=== PATIENT | male | born 1985 | race Caucasian/White ===

== ENCOUNTER 2017-07-17 10:52 | Emergency (ER) | payer OTHER ==
[2017-07-17] MEDS ORDERED: SODIUM CHLORIDE 0.9% 1,000 ML IV ONE (11:10)
[2017-07-17] MEDS ORDERED: RX INFO: IV CONTRAST WAS GIVEN 1 EACH MISC MISCELLANE PRN (11:10)
[2017-07-17] MEDS ORDERED: ACETAMINOPHEN TAB 500 MG TAB PO STA (11:10)
[2017-07-17] MEDS ORDERED: ONDANSETRON 4 MG/2 ML VIAL IVP STA (11:10)
--- NOTE | 2017-07-17 11:41 | ED ---
Abdominal Pain HPI - General Chief Complaint: Abdominal Pain Stated Complaint: Stomach/lt side pain Time Seen by Provider: 07/17/17 10:59 Source: patient Mode of arrival: ambulatory Limitations: no limitations - History of Present Illness Initial Comments: This is a 31-year-old male who presents emergency department for left-sided abdominal pain, nausea, and vomiting. The patient states it started a few days ago. He states he is also been having some chills at home. He went to [facility] who noted that he was febrile and felt that he had tenderness in his left lower quadrant was concern for diverticulitis and sent him here. The patient denies any diarrhea. No sick contacts. No cough or shortness of breath. No upper respiratory symptoms. No other complaints. - Related Data Previous Rx's Medication Instructions Recorded Ciprofloxacin HCl [Cipro] 500 mg PO Q12HR #14 tablet 07/17/17 metroNIDAZOLE [Flagyl] 500 mg PO Q8HR #21 tab 07/17/17 Allergies Allergy/AdvReac Type Severity Reaction Status Date / Time Penicillins Allergy Unknown Verified 07/17/17 11:12 Review of Systems ROS Statement: Those systems with pertinent positive or pertinent negative responses have been documented in the HPI. ROS Other: All systems not noted in ROS Statement are negative. Past Medical History Past Medical History: No Reported History History of Any Multi-Drug Resistant Organisms: None Reported Past Surgical History: No Surgical Hx Reported Past Psychological History: Anxiety, PTSD Smoking Status: Never smoker Past Alcohol Use History: Occasional Past Drug Use History: None Reported General Exam - General Exam Comments Initial Comments: Constitutional: Awake alert Appears comfortable Head: Normocephalic atraumatic Eyes: no conjunctival injection No scleral icterus EOMI Neck: No JVD Supple Heart: Regular rate rhythm normal S1-S2 no murmurs Lungs: Clear to auscultation bilaterally No wheezing No rales Abdomen: Soft nondistended tender to palpation in the left lower quadrant without rebound or guarding Extremities: Non edematous DP pulses intact Radial pulses intact Neuro: A&Ox3 No focal neurologic deficits Psych: Appropriate mood and affect Limitations: no limitations Course Vital Signs 07/17/17 10:59 Temperature 97.8 F Pulse Rate 85 Respiratory 20 Rate Blood Pressure 121/75 O2 Sat by Pulse 100 Oximetry Medical Decision Making - Medical Decision Making This is a 31-year-old male who presents emergency report for fever left lower quadrant pain. Computed tomography scan did not show evidence for diverticulitis however due to the patient's pain and symptoms of going to start him on Cipro and Flagyl. Blood work was reviewed and unremarkable. I did look at the UA from the urgent care which was negative for infection. This time going to send the patient home. Told to return if he has worsening or changing symptoms. All questions were answered. - Lab Data Result diagrams: 07/17/17 11:20 07/17/17 11:20 Lab Results 07/17/17 07/17/17 Range/Units 11:20 11:20 WBC 4.3 (3.8-10.6) k/uL RBC 5.03 (4.30-5.90) m/uL Hgb 15.9 (13.0-17.5) gm/dL Hct 48.0 (39.0-53.0) % MCV 95.5 (80.0-100.0) fL MCH 31.6 (25.0-35.0) pg MCHC 33.1 (31.0-37.0) g/dL RDW 13.6 (11.5-15.5) % Plt Count 182 (150-450) k/uL Neutrophils % 66 % Lymphocytes % 20 % Monocytes % 8 % Eosinophils % 2 % Basophils % 1 % Neutrophils # 2.8 (1.3-7.7) k/uL Lymphocytes # 0.9 L (1.0-4.8) k/uL Monocytes # 0.3 (0-1.0) k/uL Eosinophils # 0.1 (0-0.7) k/uL Basophils # 0.0 (0-0.2) k/uL Sodium 140 (137-145) mmol/L Potassium 4.2 (3.5-5.1) mmol/L Chloride 103 (98-107) mmol/L Carbon Dioxide 26 (22-30) mmol/L Anion Gap 11 mmol/L BUN 18 (9-20) mg/dL Creatinine 0.86 (0.66-1.25) mg/dL Est GFR (MDRD) Af Amer >60 (>60 ml/min/1.73 sqM) Est GFR (MDRD) Non-Af >60 (>60 ml/min/1.73 sqM) Glucose 93 (74-99) mg/dL Calcium 9.6 (8.4-10.2) mg/dL Total Bilirubin 0.8 (0.2-1.3) mg/dL AST 52 (17-59) U/L ALT 72 (21-72) U/L Alkaline Phosphatase 50 (38-126) U/L Total Protein 7.3 (6.3-8.2) g/dL Albumin 4.6 (3.5-5.0) g/dL Disposition Clinical Impression: Nausea & vomiting, Abdominal pain, Fever Disposition: HOME SELF-CARE Condition: Stable Instructions: Abdominal Pain (ED) Prescriptions: Ciprofloxacin HCl [Cipro] 500 mg PO Q12HR #14 tablet metroNIDAZOLE [Flagyl] 500 mg PO Q8HR #21 tab Referrals: None,Stated [Primary Care Provider] - 1-2 days
[2017-07-17 11:42] LABS: Basophils % (A) 1 %; Eosinophils # (A) 0.1 k/uL (0-0.7); Eosinophils % (A) 2 %; HGB 15.9 gm/dL (13.0-17.5); Lymphocytes # (A) 0.9 k/uL (1.0-4.8); Lymphocytes % (A) 20 %; MCH 31.6 pg (25.0-35.0); MCHC 33.1 g/dL (31.0-37.0); MCV 95.5 fL (80.0-100.0); Monocytes # (A) 0.3 k/uL (0-1.0); Monocytes % (A) 8 %; Neutrophils # (A) 2.8 k/uL (1.3-7.7); Neutrophils % (A) 66 %; Platelet Count 182 k/uL (150-450); RBC 5.03 m/uL (4.30-5.90); RDW 13.6 % (11.5-15.5); WBC 4.3 k/uL (3.8-10.6)
[2017-07-17 11:54] LABS: ALT 72 U/L (21-72); AST 52 U/L (17-59); Albumin 4.6 g/dL (3.5-5.0); Alkaline Phosphatase 50 U/L (38-126); Anion Gap 11 mmol/L; Blood Urea Nitrogen 18 mg/dL (9-20); Calcium 9.6 mg/dL (8.4-10.2); Carbon Dioxide 26 mmol/L (22-30); Chloride 103 mmol/L (98-107); Glucose 93 mg/dL (74-99); Potassium 4.2 mmol/L (3.5-5.1); Sodium 140 mmol/L (137-145); Total Bilirubin 0.8 mg/dL (0.2-1.3); Total Protein 7.3 g/dL (6.3-8.2)
--- NOTE | 2017-07-17 12:13 | CT ---
EXAMINATION TYPE: CT abdomen pelvis w con DATE OF EXAM: 07/17/2017 COMPARISON: NONE HISTORY: LLQ pain CT DLP: 1398.6 mGycm Automated exposure control for dose reduction was used. TECHNIQUE: Helical acquisition of images was performed from the lung bases through the pelvis. CONTRAST: Performed without Oral Contrast and with IV Contrast, patient injected with 100 mL of Omnipaque 300. FINDINGS: LUNG BASES: No significant abnormality is appreciated. LIVER/GB: Focal wedge-shaped area of hypoattenuation is seen within segment IVb of the liver along th e fissure for the falciform ligament. This is most commonly related to focal fatty infiltration. PANCREAS: No significant abnormality is seen. SPLEEN: No significant abnormality is seen. ADRENALS: No significant abnormality is seen. KIDNEYS: Focal 3 mm hypoattenuated right lower pole lesion is too small to accurately characterize. O therwise the kidneys enhance symmetrically. No hydronephrosis or perinephric fat stranding. FREE AIR: No free air is visualized. ADENOPATHY: None visualized REPRODUCTIVE ORGANS: Prostate gland is mildly heterogenous containing central zone calcification. URINARY BLADDER: No significant abnormality is seen. OSSEOUS STRUCTURES: No significant abnormality is seen. BOWEL: Few sigmoid diverticula are present without pericolonic fat stranding. Transverse colonic div erticula are also seen without pericolonic fat stranding. Surgical sutures are seen around the cecum. Appendix is likely surgically absent and not visualized. No right lower quadrant fat stranding or se condary signs of appendicitis such as adenopathy or free fluid are noted. IMPRESSION: COLONIC DIVERTICULOSIS WITHOUT EVIDENCE OF DIVERTICULITIS. NO ACUTE INTRA-ABDOMINAL PATHOLOGY.
[2017-07-17 12:53] VITALS: BP 113/62; PULSE 76; RESP 18; TEMP 97.6
== END 2017-07-17 12:53 | disposition home or self-care (01) ==
LOC: EC 10:52
DX: R10.32 Left lower quadrant pain (principal); R11.2 Nausea with vomiting, unspecified; R50.9 Fever, unspecified; Z88.0 Allergy status to penicillin
CPT/HCPCS: 36415; 74177; 80053; 85025; 96361; 96374; 99284

== ENCOUNTER 2017-07-20 09:07 | Emergency (ER) | payer OTHER ==
[2017-07-20] MEDS ORDERED: METOCLOPRAMIDE 5 MG/ML 2 ML VIAL IVP STA (10:19)
[2017-07-20] MEDS ORDERED: SODIUM CHLORIDE 0.9% 1,000 ML IV STA (10:19)
[2017-07-20] MEDS ORDERED: PANTOPRAZOLE 40 MG/10 ML VIAL IVP STA (10:19)
--- NOTE | 2017-07-20 10:25 | ED ---
General Adult HPI - General Chief complaint: Abdominal Pain Stated complaint: Abd Pain, vomiting Time Seen by Provider: 07/20/17 10:06 Source: patient, RN notes reviewed, old records reviewed Mode of arrival: ambulatory Limitations: no limitations - History of Present Illness Initial comments: Chief complaint and history of present illness; is a 31-year-old male here for complaint of nausea and vomiting but no diarrhea. The patient was in emergency room several days ago with the presumptive diagnosis of mild diverticulitis. CAT scan at that time was negative for acute diverticulitis. But his symptoms were suggestive with left lower quadrant pain. The patient was placed on Flagyl and Cipro. Patient started having nausea and vomiting yesterday throughout this morning. Patient thinks he dehydrated. He did have some chills and he felt warm. - Related Data Previous Rx's Medication Instructions Recorded Ondansetron Odt [Zofran Odt] 4 mg PO Q8HR PRN #10 tab 07/20/17 Allergies Allergy/AdvReac Type Severity Reaction Status Date / Time Penicillins Allergy Unknown Verified 07/20/17 09:41 Review of Systems ROS Statement: Those systems with pertinent positive or pertinent negative responses have been documented in the HPI. Review of systems. No visual acuity changes no headache no chest pain at this time no shortness of breath. Patient has epigastric discomfort is sometimes feels course through to his back. Lower abdomen is less uncomfortable now. Nausea and vomiting but no diarrhea. Decreased appetite. No neuro deficits complained of. All systems are reviewed. Past medical problems none. Surgeries none. Family history: Cancer. Patient has ALLERGIES to penicillin. He quit smoking 5 years ago. Drinks alcohol occasionally, socially. Denies drinking any excess alcohol lately. ROS Other: All systems not noted in ROS Statement are negative. Past Medical History Past Medical History: No Reported History History of Any Multi-Drug Resistant Organisms: None Reported Past Surgical History: No Surgical Hx Reported Past Psychological History: Anxiety, PTSD Smoking Status: Never smoker Past Alcohol Use History: Occasional Past Drug Use History: None Reported General Exam - General Exam Comments Initial Comments: General: The patient is awake and alert, here because of nausea vomiting and epigastric discomfort. The patient had been on Cipro for 2 days and then stopped yesterday because of the symptoms. No signs showed temperature 98.3 pulse 81 respiratory rate 18 pulse ox 99% room air blood pressure 138/64. Eye: Pupils are equal, round and reactive to light, extra-ocular movements are intact ; there is normal conjunctiva bilaterally. No signs of icterus. Ears, nose, mouth and throat: There are moist mucous membranes and no oral lesions. Neck: The neck is supple, there is no tenderness, no anterior cervical lymphadenopathy , thyroid not enlarged. Cardiovascular: There is a regular rate and rhythm. No murmur, rub or gallop is appreciated. Respiratory: Lungs are clear to auscultation, respirations are non-labored, breath sounds are equal. No wheezes, stridor, rales, or rhonchi. Gastrointestinal: Soft, non-distended, non-tender abdomen without masses or organomegaly noted. There is no rebound or guarding present. No CVA tenderness. Bowel sounds are unremarkable. Subjective complaint of epigastric discomfort. Nausea vomiting. No diarrhea. Back: There is no tenderness to palpation in the midline. There is no obvious deformity. No rashes noted. Negative kidney punch test. He reports last night does have some discomfort behind the epigastric area in his back. Musculoskeletal: Normal ROM, no tenderness, There is no pedal edema. There is no calf tenderness or swelling. Sensation intact. Pulses equal bilaterally 2+. 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 Neurological: No evidence of or any complaints of any neuro deficits. No numbness no tingling no weakness. Skin: No rashes Psychiatric: Patient is cooperative. No evidence or signs of distress or depression. Limitations: no limitations Course Vital Signs 07/20/17 07/20/17 07/20/17 09:26 10:18 11:43 Temperature 98.3 F 98.2 F Pulse Rate 81 68 63 Respiratory 18 16 18 Rate Blood Pressure 138/64 119/57 100/62 O2 Sat by Pulse 99 98 99 Oximetry Medical Decision Making - Medical Decision Making Medical decision making; 31-year-old male here with a complaint of nausea and vomiting. Some epigastric discomfort. He's been on Flagyl and Cipro for 2 days for presumptive diverticulitis. The CAT scan done several days ago is negative for diverticulitis though. Labs show; white count 5.2 hemoglobin 16 hematocrit of 50, potassium 4.1 BUN 10 creatinine 0.19 the GFR greater than 60 with a glucose 94. The patient's AST is mildly elevated at 76 ALT elevated at 105. Amylase lipase within normal limits. X-ray of the abdomen was done and reviewed by radiologist his final impression is nonspecific abdomen. Few prominent small bowel loops in the upper abdomen greater on the left. Differential included a localized ileus or enteritis. Partial obstructive pattern felt less likely correlate clinically. As read by Dr. Zaragoza Patient states he is feeling better. We will challenge him with ice chips. No discomfort no nausea no vomiting while in emergency room. Is able to drink less water and eat ice chips without any nausea or vomiting. We did discuss gastroenteritis. Patient be advised to use prescription of Zofran as directed. Plus Pepto-Bismol. Advised to advance his diet starting with small amount of fluid. Than probiotics. He is advised to follow-up with family physician return emergency room as needed. Also advised to research diet restrictions for people with diverticulosis. Advised return emergency room as needed - Lab Data Result diagrams: 07/20/17 10:00 07/20/17 10:00 Lab Results 07/20/17 07/20/17 07/20/17 Range/Units 10:00 10:00 10:00 WBC 5.2 (3.8-10.6) k/uL RBC 5.10 (4.30-5.90) m/uL Hgb 16.4 (13.0-17.5) gm/dL Hct 50.0 (39.0-53.0) % MCV 98.0 (80.0-100.0) fL MCH 32.1 (25.0-35.0) pg MCHC 32.8 (31.0-37.0) g/dL RDW 13.3 (11.5-15.5) % Plt Count 175 (150-450) k/uL Neutrophils % 66 % Lymphocytes % 22 % Monocytes % 8 % Eosinophils % 3 % Basophils % 1 % Neutrophils # 3.4 (1.3-7.7) k/uL Lymphocytes # 1.1 (1.0-4.8) k/uL Monocytes # 0.4 (0-1.0) k/uL Eosinophils # 0.1 (0-0.7) k/uL Basophils # 0.0 (0-0.2) k/uL Sodium 138 (137-145) mmol/L Potassium 4.1 (3.5-5.1) mmol/L Chloride 104 (98-107) mmol/L Carbon Dioxide 25 (22-30) mmol/L Anion Gap 9 mmol/L BUN 10 (9-20) mg/dL Creatinine 0.92 (0.66-1.25) mg/dL Est GFR (MDRD) Af Amer >60 (>60 ml/min/1.73 sqM) Est GFR (MDRD) Non-Af >60 (>60 ml/min/1.73 sqM) Glucose 94 (74-99) mg/dL Plasma Lactic Acid Bari 0.8 (0.7-2.0) mmol/L Calcium 9.6 (8.4-10.2) mg/dL Total Bilirubin 1.0 (0.2-1.3) mg/dL AST 76 H (17-59) U/L ALT 105 H (21-72) U/L Alkaline Phosphatase 45 (38-126) U/L Total Protein 6.9 (6.3-8.2) g/dL Albumin 4.3 (3.5-5.0) g/dL Amylase <30 L (30-110) U/L Lipase 31 (23-300) U/L Urine Color Urine Appearance (Clear) Urine pH (5.0-8.0) Ur Specific [place] (1.001-1.035) Urine Protein (Negative) Urine Glucose (UA) (Negative) Urine Ketones (Negative) Urine Blood (Negative) Urine Nitrite (Negative) Urine Bilirubin (Negative) Urine Urobilinogen (<2.0) mg/dL Ur Leukocyte Esterase (Negative) 07/20/17 Range/Units 10:00 WBC (3.8-10.6) k/uL RBC (4.30-5.90) m/uL Hgb (13.0-17.5) gm/dL Hct (39.0-53.0) % MCV (80.0-100.0) fL MCH (25.0-35.0) pg MCHC (31.0-37.0) g/dL RDW (11.5-15.5) % Plt Count (150-450) k/uL Neutrophils % % Lymphocytes % % Monocytes % % Eosinophils % % Basophils % % Neutrophils # (1.3-7.7) k/uL Lymphocytes # (1.0-4.8) k/uL Monocytes # (0-1.0) k/uL Eosinophils # (0-0.7) k/uL Basophils # (0-0.2) k/uL Sodium (137-145) mmol/L Potassium (3.5-5.1) mmol/L Chloride (98-107) mmol/L Carbon Dioxide (22-30) mmol/L Anion Gap mmol/L BUN (9-20) mg/dL Creatinine (0.66-1.25) mg/dL Est GFR (MDRD) Af Amer (>60 ml/min/1.73 sqM) Est GFR (MDRD) Non-Af (>60 ml/min/1.73 sqM) Glucose (74-99) mg/dL Plasma Lactic Acid Bari (0.7-2.0) mmol/L Calcium (8.4-10.2) mg/dL Total Bilirubin (0.2-1.3) mg/dL AST (17-59) U/L ALT (21-72) U/L Alkaline Phosphatase (38-126) U/L Total Protein (6.3-8.2) g/dL Albumin (3.5-5.0) g/dL Amylase (30-110) U/L Lipase (23-300) U/L Urine Color Yellow Urine Appearance Clear (Clear) Urine pH 7.5 (5.0-8.0) Ur Specific [place] 1.007 (1.001-1.035) Urine Protein Negative (Negative) Urine Glucose (UA) Negative (Negative) Urine Ketones Negative (Negative) Urine Blood Negative (Negative) Urine Nitrite Negative (Negative) Urine Bilirubin Negative (Negative) Urine Urobilinogen <2.0 (<2.0) mg/dL Ur Leukocyte Esterase Negative (Negative) Disposition Clinical Impression: Gastroenteritis Disposition: HOME SELF-CARE Condition: Fair Instructions: Gastroenteritis (ED), Acute Nausea and Vomiting (ED) Additional Instructions: Use Zofran for nausea as needed every 6 hours. Advance your diet starting with frequent small amounts of fluids. Use Pepto-Bismol. Follow-up with family physician return emergency room as needed. Prescriptions: Ondansetron Odt [Zofran Odt] 4 mg PO Q8HR PRN #10 tab PRN Reason: Nausea Referrals: None,Stated [Primary Care Provider] - 1-2 days Time of Disposition: 11:49
[2017-07-20 10:49] LABS: Appearance,Urine Clear (Clear); Bilirubin,Urine Negative (Negative); Blood,Urine Negative (Negative); Color,Urine Yellow; Glucose,Urine (UA) Negative (Negative); Ketones,Urine Negative (Negative); Leukocyte Esterase,Urine Negative (Negative); Nitrite,Urine Negative (Negative); PH, Urine 7.5 (5.0-8.0); Protein,Urine Negative (Negative); Specific Gravity,Urine 1.007 (1.001-1.035); Urobilinogen,Urine <2.0 mg/dL (<2.0)
--- NOTE | 2017-07-20 10:57 | XR ---
EXAMINATION TYPE: XR abdomen 2V DATE OF EXAM: 07/20/2017 COMPARISON: None HISTORY: Nausea and vomiting TECHNIQUE: One view abdominal series FINDINGS: The osseous structures are intact. The bowel gas pattern is nonspecific. Lung bases are clear. A fe w prominent small bowel loops are seen in the abdomen. IMPRESSION: 1. Nonspecific abdomen. Few prominent small bowel loops in the upper abdomen greater on the left. Di fferential include localized ileus or enteritis. Partial obstructive pattern felt less likely correla te clinically.
[2017-07-20 11:02] LABS: ALT 105 U/L (21-72); AST 76 U/L (17-59); Albumin 4.3 g/dL (3.5-5.0); Alkaline Phosphatase 45 U/L (38-126); Amylase <30 U/L (30-110); Anion Gap 9 mmol/L; Blood Urea Nitrogen 10 mg/dL (9-20); Calcium 9.6 mg/dL (8.4-10.2); Carbon Dioxide 25 mmol/L (22-30); Chloride 104 mmol/L (98-107); Glucose 94 mg/dL (74-99); Lipase 31 U/L (23-300); Potassium 4.1 mmol/L (3.5-5.1); Sodium 138 mmol/L (137-145); Total Protein 6.9 g/dL (6.3-8.2)
[2017-07-20 11:23] LABS: Basophils % (A) 1 %; Eosinophils # (A) 0.1 k/uL (0-0.7); Eosinophils % (A) 3 %; HGB 16.4 gm/dL (13.0-17.5); Lymphocytes # (A) 1.1 k/uL (1.0-4.8); Lymphocytes % (A) 22 %; MCH 32.1 pg (25.0-35.0); MCHC 32.8 g/dL (31.0-37.0); Mean Platelet Volume 8.5; Monocytes # (A) 0.4 k/uL (0-1.0); Monocytes % (A) 8 %; Neutrophils # (A) 3.4 k/uL (1.3-7.7); Neutrophils % (A) 66 %; Platelet Count 175 k/uL (150-450); RDW 13.3 % (11.5-15.5); WBC 5.2 k/uL (3.8-10.6)
[2017-07-20 11:44] VITALS: BP 100/62; PULSE 63; RESP 18
[2017-07-20 12:10] VITALS: TEMP 98
== END 2017-07-20 11:50 | disposition home or self-care (01) ==
LOC: EC 09:07
DX: K52.9 Noninfective gastroenteritis and colitis, unspecified (principal); R74.0 Nonspecific elevation of levels of transaminase and lactic acid dehydrogenase [LDH]; Z87.891 Personal history of nicotine dependence; Z88.0 Allergy status to penicillin
CPT/HCPCS: 36415; 74019; 80053; 81003; 82150; 83605; 83690; 85025; 87086; 96361; 96374; 96375; 99284